=== PATIENT | male | born 1955 | race Two or more races ===

== ENCOUNTER 2020-01-20 14:01 | Inpatient (IN) | payer OTHER, MEDICARE ==
[~2020-01-20] VITALS: Ht 172.7 cm; Wt 82.0 kg
[2020-01-20 14:28] LABS: BASOPHILS # (AUTO) 0.1 X10'3 (0-0.2); BASOPHILS % (AUTO) 0.6 % (0-1); EOSINOPHILS # (AUTO) 0.1 X10'3 (0-0.9); EOSINOPHILS % (AUTO) 1.7 % (0-6); HEMATOCRIT 49.3 % (42.0-52.0); LYMPHOCYTES # (AUTO) 2.6 X10'3 (1.1-4.8); LYMPHOCYTES % (AUTO) 32.4 % (21-51); MEAN CORPUSCULAR HEMOGLOBIN 32.9 PG (27.0-31.0); MEAN CORPUSCULAR HGB CONC 34.6 g/dL (33.0-36.5); MEAN CORPUSCULAR VOLUME 95.3 FL (78-98); MEAN PLATELET VOLUME 10.3 FL (7.4-10.4); MONOCYTES # (AUTO) 0.4 X10'3 (0-0.9); MONOCYTES % (AUTO) 5.2 % (2-12); NEUTROPHILS # (AUTO) 4.8 X10'3 (1.8-7.7); NEUTROPHILS % (AUTO) 60.1 % (42-75); PLATELET COUNT 157 X10'3 (140-440); RED BLOOD COUNT 5.17 X10'6 (4.70-6.10); RED CELL DISTRIBUTION WIDTH 13.4 % (11.5-14.5); WHITE BLOOD COUNT 7.9 X10'3 (4.5-11.0)
[2020-01-20] MEDS ORDERED: enalaprilat dihydrate 2.5mg/2ml vial IV ONE (14:35)
[2020-01-20] MEDS ORDERED: nitroGLYCERIN 0.4mg/hour patch TD ONE (14:35)
[2020-01-20 14:43] LABS: ALANINE AMINOTRANSFERASE 27 U/L (12-78); ALBUMIN 3.8 G/DL (3.4-5.0); ALKALINE PHOSPHATASE 84 IU/L (46-116); ANION GAP 7 (8-16); ASPARTATE AMINO TRANSFERASE 24 U/L (10-37); BLOOD UREA NITROGEN 13 MG/DL (7-18); BUN/CREATININE RATIO 16.9 (5.4-32.0); CALCIUM 8.3 MG/DL (8.5-10.1); CHLORIDE 103 MMOL/L (99-107); CREATININE 0.77 MG/DL (0.60-1.10); GLUCOSE 99 MG/DL (70-104); POTASSIUM 3.5 MMOL/L (3.5-5.1); SODIUM 139 MMOL/L (135-145); TOTAL CARBON DIOXIDE 29.4 MMOL/L (24-32); TOTAL PROTEIN 7.8 G/DL (6.4-8.2); eGFR > 90 ML/MIN
[2020-01-20 14:49] LABS: MAGNESIUM 2.2 MG/DL (1.5-2.4)
[2020-01-20] MEDS ORDERED: mag hydrox/Alum hydrox/simeth 30ml oral suspension PO PRN (15:20)
[2020-01-20] MEDS ORDERED: morphine 2 MG/ML inj. syringe IV PRN ×2 (15:20)
[2020-01-20] MEDS ORDERED: bisacodyl 10mg suppository rectal RC PRN (15:20)
[2020-01-20] MEDS ORDERED: HYDROcodone/acetaminophen 5mg/325mg tablet PO PRN (15:20)
[2020-01-20] MEDS ORDERED: acetaminophen 325mg tablet PO PRN ×2 (15:20)
[2020-01-20] MEDS ORDERED: ondansetron/PF 4mg/2ml inj IV PRN (15:20)
[2020-01-20] MEDS ORDERED: magnesium 4gm in 100ml NS 100 ML IV PRN (15:20)
[2020-01-20] MEDS ORDERED: HYDROcodone/acetaminophen 10/325mg tab PO PRN (15:20)
[2020-01-20] MEDS ORDERED: potassium Cl 20 mEq SR tablet PO PRN ×2 (15:20)
[2020-01-20] MEDS ORDERED: magnesium Cl slow-release 64mg tablet PO PRN (15:20)
[2020-01-20] MEDS ORDERED: potassium CL 10mEq/100ml bag 100 ML IV PRN ×2 (15:20)
[2020-01-20] MEDS ORDERED: magnesium hydroxide 30ml (MOM) UD suspension PO PRN (15:20)
[2020-01-20] MEDS ORDERED: diphenhydrAMINE 25mg capsule PO PRN (15:20)
[2020-01-20] MEDS ORDERED: acetaminophen 650mg rectal suppository RC PRN (15:20)
[2020-01-20] MEDS ORDERED: normal saline 1000ml 1,000 ML IV SCH (15:20)
[2020-01-20] MEDS ORDERED: magnesium 2GM in 50ml NS 50 ML IV PRN (15:20)
--- NOTE | 2020-01-20 15:57 | NUR ---
PT GAVE CONSENT TO UPDATE DAUGHTER LIYAH. PT DAUGHTER UPDATED.
--- NOTE | 2020-01-20 16:05 | NUR ---
Patient in room . I have received report from Giorgi CARRINGTON from ER and had the opportunity to ask questions and assume patient care.
[2020-01-20] MEDS: losartan 50mg tablet PO SCH (16:30)
[2020-01-20] MEDS ORDERED: metoprolol tartrate 1mg/ml inj IV PRN (16:45)
[2020-01-20] MEDS ORDERED: nitroGLYCERIN 0.4mg SUBLingual tab SL PRN (16:45)
[2020-01-20] MEDS ORDERED: aminophylline 250mg/10ml inj. IV PRN (16:45)
[2020-01-20] MEDS ORDERED: regadenoson 0.4mg/5ml syringe IV ONE (16:45)
--- NOTE | 2020-01-20 17:22 | NUR ---
Dr. Macdonald at bedside with patient. New orders to stop Coreg due to HR low, Add Free T4 and TSH labs. Will continue to monitor.
[2020-01-20 17:34] LABS: HEMOGLOBIN A1C 5.6 % (4.5-6.2)
[2020-01-20 18:00] VITALS: BP 101/60
--- NOTE | 2020-01-20 18:23 | NUR ---
Problems reprioritized. Patient report given, questions answered & plan of care reviewed with Verna CARRINGTON.
--- NOTE | 2020-01-20 19:01 | NUR ---
Patient in room PCU 3017. I have received report from Emmy CARRINGTON and had the opportunity to ask questions and assume patient care.
[2020-01-20] MEDS ORDERED: LEVO88TA2 PO (19:18)
[2020-01-20] MEDS ORDERED: LEVO100T PO (19:18)
[2020-01-20] MEDS ORDERED: carVEDilol 3.125mg tablet PO SCH (20:00)
[2020-01-20] MEDS: K and/or MAG REPLACEMENT MC SCH (20:00)
[2020-01-20] MEDS: heparin, porcine 5000 units/ml vial SQ SCH (21:25)
[2020-01-20] MEDS: atorvastatin 10mg tablet PO SCH (21:25)
[2020-01-20 22:00] VITALS: BP 96/58
[2020-01-21] VITALS (10 sets, daily range): BP systolic 105–151; BP diastolic 58–79
[2020-01-21 02:57] LABS: CLARITY,URINE CLEAR (Clear); COLOR,URINE YELLOW (Yellow); GLUCOSE, URINE NEGATIVE (Neg); KETONES,URINE NEGATIVE (Neg); LEUKOCYTE ESTERASE ,URINE NEGATIVE (Neg); NITRITES, URINE NEGATIVE (Neg); OCCULT BLOOD,URINE NEGATIVE (Neg); PROTEIN,URINE NEGATIVE (Neg); UROBILINOGEN,URINE 0.2 E.U/dL (0.2-1.0)
[2020-01-21 02:58] LABS: UA COLLECTION TYPE VOIDED
[2020-01-21 03:10] LABS: BASOPHILS # (AUTO) 0.1 X10'3 (0-0.2); BASOPHILS % (AUTO) 0.8 % (0-1); EOSINOPHILS # (AUTO) 0.2 X10'3 (0-0.9); EOSINOPHILS % (AUTO) 2.3 % (0-6); HEMATOCRIT 44.7 % (42.0-52.0); HEMOGLOBIN 15.1 g/dl (14.0-17.9); LYMPHOCYTES # (AUTO) 2.1 X10'3 (1.1-4.8); LYMPHOCYTES % (AUTO) 28.3 % (21-51); MEAN CORPUSCULAR HGB CONC 33.7 g/dL (33.0-36.5); MEAN CORPUSCULAR VOLUME 94.9 FL (78-98); MEAN PLATELET VOLUME 10.8 FL (7.4-10.4); MONOCYTES # (AUTO) 0.5 X10'3 (0-0.9); NEUTROPHILS # (AUTO) 4.5 X10'3 (1.8-7.7); NEUTROPHILS % (AUTO) 61.6 % (42-75); PLATELET COUNT 158 X10'3 (140-440); RED BLOOD COUNT 4.71 X10'6 (4.70-6.10); RED CELL DISTRIBUTION WIDTH 13.1 % (11.5-14.5); WHITE BLOOD COUNT 7.3 X10'3 (4.5-11.0)
[2020-01-21 03:13] LABS: ALANINE AMINOTRANSFERASE 24 U/L (12-78); ALBUMIN 3.3 G/DL (3.4-5.0); ALKALINE PHOSPHATASE 69 IU/L (46-116); ANION GAP 6 (8-16); ASPARTATE AMINO TRANSFERASE 21 U/L (10-37); BILIRUBIN,TOTAL 0.7 MG/DL (0.1-1.0); BLOOD UREA NITROGEN 15 MG/DL (7-18); BUN/CREATININE RATIO 17.9 (5.4-32.0); CALCIUM 7.8 MG/DL (8.5-10.1); CHLORIDE 104 MMOL/L (99-107); CREATININE 0.84 MG/DL (0.60-1.10); GLUCOSE 95 MG/DL (70-104); POTASSIUM 3.6 MMOL/L (3.5-5.1); SODIUM 139 MMOL/L (135-145); TOTAL CARBON DIOXIDE 28.7 MMOL/L (24-32); TOTAL PROTEIN 6.7 G/DL (6.4-8.2); eGFR > 90 ML/MIN
[2020-01-21 03:16] LABS: CHOL/HDL RATIO 4.8 (0.00-4.99); CHOLESTEROL 184 MG/DL (0-200); HDL CHOLESTEROL 38 MG/DL (35-60); LDL CHOLESTEROL 115 MG/DL (50-100); MAGNESIUM 2.2 MG/DL (1.5-2.4); PHOSPHORUS 4.3 MG/DL (2.3-4.5); TRIGLYCERIDES 136 MG/DL (20-135)
--- NOTE | 2020-01-21 06:18 | NUR ---
Patient in room PCU 3017. I have received report from Verna CARRINGTON and had the opportunity to ask questions and assume patient care.
--- NOTE | 2020-01-21 07:22 | NUR ---
Problems reprioritized. Patient report given, questions answered & plan of care reviewed with Vanessa CARRINGTON.
[2020-01-21] MEDS ORDERED: levoTHYROXINE 100mcg tablet PO SCH (07:30)
[2020-01-21] MEDS ORDERED: levoTHYROXINE 88mcg tablet PO SCH (07:30)
[2020-01-21] MEDS: K and/or MAG REPLACEMENT MC SCH (08:00)
[2020-01-21] MEDS ORDERED: aspirin 81mg tablet.DR PO SCH (08:00)
[2020-01-21] MEDS ORDERED: nitroGLYCERIN 0.4mg/hour patch TD SCH (08:00)
[2020-01-21] MEDS ORDERED: FLU VACC QS2020-21(6MOS UP)/PF 60 MCG/0.5 ML SYRINGE IMVAC ONE (10:00)
[2020-01-21] MEDS: atorvastatin 10mg tablet PO SCH (11:20)
[2020-01-21] MEDS: heparin, porcine 5000 units/ml vial SQ SCH (11:20)
[2020-01-21] MEDS: losartan 50mg tablet PO SCH (11:21)
--- NOTE | 2020-01-21 12:22 | NUR ---
MESSAGE: DAYNE ON [email or web address], THE [facility] REPORTS ARE AVAILABLE FOR BOTH 3017A AND 3017B, THANK YOU. (86 character message out of a maximum of 240)
[2020-01-21] MEDS ORDERED: ATOR10TA PO (12:49)
[2020-01-21] MEDS ORDERED: LOSA50TA64 PO (12:49)
[2020-01-21] MEDS ORDERED: AMLO5TAB16 PO (12:49)
[2020-01-21] MEDS ORDERED: ASPI-1071 PO (12:49)
--- NOTE | 2020-01-21 15:58 | NUR ---
Patient stable for discharge per MD orders. All discharge instructions reviewed with patient and all questions answered. New prescriptions faxed to pharmacy. PIV discontinued, cannula intact. Telemetry discontinued, public safety telecommunicator notified. All belongings collected and sent with patient. Patient picked up by family member in private vehicle, wheeled to lobby by staff.
== END 2020-01-21 15:03 | disposition home or self-care (01) | DRG 281 ==
LOC: ER 14:03 → ED HOLD 15:16 → PCU 3S 16:30
PROVIDERS: ADMIT Family Medicine; ATTEND Family Medicine
PROC: 3E02340 Introduction of Influenza Vaccine into Muscle, Percutaneous Approach (ICD-10-PCS; principal; 2020-01-21)
PROC: 4A02XM4 Measurement of Cardiac Total Activity, External Approach (ICD-10-PCS; 2020-01-21)
PROC: 3E073KZ Introduction of Other Diagnostic Substance into Coronary Artery, Percutaneous Approach (ICD-10-PCS; 2020-01-21)
DX: I21.A1 Myocardial infarction type 2 (principal); I16.1 Hypertensive emergency; I10 Essential (primary) hypertension; R00.1 Bradycardia, unspecified; E78.5 Hyperlipidemia, unspecified; E03.9 Hypothyroidism, unspecified; Z23 Encounter for immunization; Z87.891 Personal history of nicotine dependence; Z85.850 Personal history of malignant neoplasm of thyroid
CPT/HCPCS: 36415; 71045; 78452; 80053; 80061; 81003; 83036; 83735; 83880; 84100; 84439; 84443; 84484; 85025; 87081; 93005; 93017; 93306; 96374; 99285; A9500; G0378; J1644; J2785; J7030; Q2039

== ENCOUNTER 2025-02-23 11:38 | Emergency (ER) | payer MEDICARE, MEDICAID ==
[~2025-02-23] VITALS: Ht 175.3 cm; Wt 94.3 kg
[~2025-02-23 11:38] MED LIST: ASPI81TA52 PO; ATOR40TA71 PO; FURO-150 PO; LEVO137T19 PO; LOSA50TA64 PO; METF-437 PO; PANT40TA54 PO; TAMS-55 PO; [UNRECOGNIZED DRUG - CODE] PO
[2025-02-23 11:49] VITALS: TEMP 98.7
--- NOTE | 2025-02-23 12:00 | ELECTROCARDIOGRAPH REPORT ---
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 EDITA Montalvo Measurements Intervals [place] Rate: 60 P: 0 CA: 240 QRS: 30 QRSD: 88 T: -87 QT: 388 QTc: 388 Interpretive Statements Atrial-paced complexes Prolonged CA interval LVH with secondary repolarization abnormality Anterior infarct, old Baseline wander in lead(s) V3 Electronically Signed On 02-25-2025 15:15:[address] EDITA Montalvo Please click the below link to view image of tracing.
--- NOTE | 2025-02-23 12:01 | RADIOLOGY REPORT ---
CHEST RADIOGRAPH Indication: CP Technique: Single frontal view of the chest was obtained. Comparison: XR CHEST 1 VIEW on DOS: 01/22/25 Findings: Left chest wall CIED. No focal consolidation. No significant pleural effusion. No pneumothorax. Stable cardiomediastinal silhouette. IMPRESSION: No acute cardiopulmonary process.
[2025-02-23 12:30] LABS: MEAN PLATELET VOLUME 9.4 FL (7.4-10.4); RED CELL DISTRIBUTION WIDTH 13.7 % (11.5-14.5)
[2025-02-23 12:55] LABS: CREATININE 0.79 MG/DL (0.60-1.10); PRO BRAIN NATRIURETIC PEPTIDE 260 PG/ML (0-125); TOTAL CARBON DIOXIDE 28.8 MMOL/L (24-32); eCRCL 86 ML/MIN; eGFR > 90 ML/MIN
--- NOTE | 2025-02-23 13:14 | Physician Documentation ---
History of Present Illness ~ General Chief Complaint: Abnormal Lab(s) Stated Complaint: HIGH TRIPONIN LEVEL DOC REFERRED Time Seen by MD: 12:00 Primary Medical Doctor: Walk in clinic Mode of Arrival: POV, Ambulatory History of Present Illness Initial Comments 69 years old male with history of uncontrolled hypertension, type 2 diabetes mellitus, sick sinus syndrome status post pacemaker in 2022 [place] presented to the ED, elevated troponin. Patient yesterday went to the primary care clinic and blood pressure was elevated they also sent lab workup. Today they call him regarding elevated troponin which was 115 and ask him to go to the ED. Patient denied chest pain shortness of breaths abdominal pain or any symptoms, due to high blood pressure also they added losartan yesterday, today in the triage systolic blood pressure was 160 and then she was in the bed systolic blood pressure was 135, heart rate 60. on 01/24/25, Patient admitted in our hospital last month with NSTEMI, For elevated tropnins, consulted Dr Quintero Surgical Resident who recommended lexiscan which showed very mild/ subtle reversible defect in the inferior wall may represent mild ischemia versus artifact and after lexsican results was consulted again, who recommended to follow patient with Dr. Truong and Dr Quintero will make appointment for patient with Dr Truong. Patient reported he had finance associate follow-up on 03/01/25 Patient is on atorvastatin, atenolol and yesterday the dose of losartan increa sed to 100 mg Medication Reconciliation Allergies: Coded Allergies: No Known Allergies (Unverified , 02/23/25) Scheduled Aspirin (Aspirin EC), 1 TAB PO DAILY Atenolol (Atenolol), 1 TAB PO DAILY Atorvastatin Calcium (Atorvastatin Calcium), 1 TAB PO DAILY Furosemide (Lasix), 20 MG PO DAILY Levothyroxine Sodium (Levoxyl), 1 TAB PO DAILY, (Reported) Losartan Potassium (Losartan Potassium), 50 MG PO DAILY Metformin Hcl (Metformin Hcl), 1 TAB PO BID, (Reported) Pantoprazole Sodium (Pantoprazole Sodium), 40 MG PO DAILY Tamsulosin Hcl* (Flomax*), 1 CAP PO DAILY Past Medical History Past Medical History: Coronary Artery Disease, High Cholesterol, Hypertension Past Surgical History: noncontributory Smoking Status: Former smoker Alcohol Use: Rarely Drug Use: none Lives In: Home Review of Systems ROS The history of present illness included a review of system, which yielded relevant positives and negatives Physical Exam Physical Exam Vital Signs: Temperature: 98.7, Source: Temporal, Heart Rate: 60, Respiratory Rate: 16, BP: 165/135, Pulse Oximetry: 98, Weight: 94.300 Oxygen Flow Rate: 0 Physical Exam General: Awake and Alert, no acute distress. HEENT: Conjunctiva pink, Sclera clear, Mucus Membranes moist. Neck: Supple without masses and tenderness. Resp: Lungs clear to auscultation bilaterally. Heart: Regular Rate and rhythm, normal S1 and S2 Abdomen: Soft and non tender Extremities: No cyanosis,clubbing or edema. Skin: Warm and Dry. Neurological: Speech is clear, alert, and oriented x 4, no gross neurological deficits Progress Results/Orders Results/Orders Completed Orders - MATTHEW HERNANDEZ RES Aspirin 325mg Tablet (Aspirin 325mg Tabl (02/23/25 12:55) Medications Received in ER Medications (Trade) Dose Ordered Sig/Alpa Route PRN Reason Start Time Stop Time Status Last Admin Dose Admin (aspirin 325mg tablet) 1 tab ONCE ONCE PO 02/23/25 12:55 02/23/25 12:59 DC 02/23/25 13:17 1 TAB Vital Signs 02/23/25 02/23/25 02/23/25 11:49 12:14 12:17 Temp 98.7 Pulse 60 60 Resp 15 16 16 B/P (MAP) 161/86 165/135 (145) Pulse Ox 98 98 O2 Flow Rate 0 0 Laboratory Tests Test 02/23/25 12:17 White Blood Count 6.4 Red Blood Count 4.25 L Hemoglobin 14.0 Hematocrit 39.9 L Mean Corpuscular Volume 94.0 Mean Corpuscular Hemoglobin 32.9 H Mean Corpuscular Hemoglobin Concent 35.0 Red Cell Distribution Width 13.7 Platelet Count 149 Mean Platelet Volume 9.4 Neutrophils (%) (Auto) 52.6 Lymphocytes (%) (Auto) 36.3 Monocytes (%) (Auto) 7.3 Eosinophils (%) (Auto) 2.8 Basophils (%) (Auto) 1.0 Neutrophils # (Auto) 3.4 Lymphocytes # (Auto) 2.3 Monocytes # (Auto) 0.5 Eosinophils # (Auto) 0.2 Basophils # (Auto) 0.1 CBC Comment Sodium Level 143 Potassium Level 3.8 Chloride Level 106 Carbon Dioxide Level 28.8 Anion Gap 8 Blood Urea Nitrogen 12 Creatinine 0.79 Estimated GFR/1.73 m2 > 90 BUN/Creatinine Ratio 15.2 Glucose Level 120 H Calcium Level 8.1 L Troponin I High Sensitivity 162 *H Pro-B-Type Natriuretic Peptide 260 H Albumin 3.8 Chemistry Comments EKG/XRAY/CT/US/VASC/MRI EKG : Additional Comment EKG: Atrial paced, normal axis, no ST changes Chest X-Ray : Additional Comments CHEST RADIOGRAPH Indication: CP Technique: Single frontal view of the chest was obtained. Comparison: XR CHEST 1 VIEW on DOS: 01/22/25 Findings: Left chest wall CIED. No focal consolidation. No significant pleural effusion. No pneumothorax. Stable cardiomediastinal silhouette. IMPRESSION: No acute cardiopulmonary process. Heart Score: Heart Score Response (Comments) Value History Slightly Suspicious 0 EKG Repolarization Disturb 1 Age >65 2 Risk Factors >3 or Hx ASHD 2 Total 5 Medical Decision Making Additional information obtaine: old records Findings 69 years old male referred from primary care due to elevated troponin 115, and elevated blood pressure Differential diagnosis is but not limited to hypertension crisis, myocardial infarction, on 01/24/25, Patient admitted in our hospital last month with NSTEMI, For elevated tropnins, consulted Dr Quintero Surgical Resident who recommended lexiscan which showed very mild/ subtle reversible defect in the inferior wall may represent mild ischemia versus artifact and after lexsican results was consulted again, who recommended to follow patient with Dr. Truong and Dr Quintero will make appointment for patient with Dr Truong. Patient reported he had finance associate follow-up on 03/01/25 Patient is on atorvastatin, atenolol and yesterday the dose of losartan increased to 100 mg The elevated troponin due to high blood pressure, troponin trend down compared to last month blood pressure is controlled 140/95 Differential Diagnosis , Departure Disposition: HOME / SELF CARE / HOMELESS Impression: Primary Impression: Elevated blood pressure reading Condition: Stable Additional Instructions: Please monitor your blood pressure at home, take your medication as directed, follow-up with your finance associate Dr. Giron on 03/01/25 Came to the ED if you have any chest pain or shortness of breaths or any worsening symptoms. Referrals: NO PRIMARY CARE PROVIDER (PCP) Signature Scribe Signature: no scribe Attestation: The resident MD attestation: I examined the patient and discussed the plan with attending physician MATTHEW Cast, RES Feb 23, 2025 13:14
[2025-02-23 14:33] VITALS: BP 183/86; PULSE 60; RESP 17; O2SAT 97
== END 2025-02-23 14:36 | disposition home or self-care (01) ==
LOC: ER 11:39
DX: I10 Essential (primary) hypertension (principal); E11.9 Type 2 diabetes mellitus without complications; E78.00 Pure hypercholesterolemia, unspecified; I25.10 Atherosclerotic heart disease of native coronary artery without angina pectoris; I25.2 Old myocardial infarction; Z95.0 Presence of cardiac pacemaker; Z79.82 Long term (current) use of aspirin; Z79.899 Other long term (current) drug therapy
CPT/HCPCS: 36415; 71045; 80048; 83880; 84484; 85025; 93005; 99285